=== PATIENT | female | born 1930 | race Caucasian/White ===

== ENCOUNTER 2017-08-05 13:36 | Inpatient (IN) | payer MEDICARE ==
[~2017-08-05] VITALS: Ht 160 cm; Wt 64.6 kg
[~2017-08-05 13:36] MED LIST: ADAL60TA9 PO; ASPI81 PO; CEPH500C3 PO; LISI-360 PO; NOVONP2 SQ; OMEP20TA PO; SYNT137T PO; TAB-TAB PO
[2017-08-05 13:43] VITALS: BP 157/70; PULSE 69; RESP 17; TEMP 98.8; O2SAT 97
[2017-08-05] MEDS ORDERED: LEVO112T2 PO (13:55)
[2017-08-05] MEDS ORDERED: NIFE60TA58 PO (13:55)
[2017-08-05] MEDS ORDERED: LOSA50TA PO (13:55)
[2017-08-05] MEDS ORDERED: SODIUM CHLORID 0.9% 500 ML INJ 500 ML IV ONE (14:45)
[2017-08-05] MEDS ORDERED: ONDANSETRON HCL 4 MG/2 ML VIAL IV PUSH ONE (14:45)
[2017-08-05] MEDS ORDERED: SODIUM CHLORIDE 0.9% FLUSH 10 ML FLUSH IVF PRN (14:45)
[2017-08-05 15:07] LABS: AUTOMATED NEUTROPHIL # 7.4 TH/MM3 (1.8-7.7); BASOPHIL # 0.1 TH/MM3 (0-0.2); BASOPHIL % 0.6 % (0.0-2.0); EOSINOPHIL # 0.1 TH/MM3 (0-0.4); EOSINOPHIL % 0.9 % (0.0-4.0); HEMOGLOBIN 11.2 GM/DL (11.6-15.3); LYMPH % 17.5 % (9.0-44.0); LYMPHOCYTE # 1.8 TH/MM3 (1.0-4.8); MEAN CELL VOLUME 90.8 FL (80.0-100.0); MEAN CORPUSCULAR HEMOGLOBIN 31.8 PG (27.0-34.0); MONO % 7.6 % (0.0-8.0); MONOCYTE # 0.8 TH/MM3 (0-0.9); NEUT % 73.4 % (16.0-70.0); PLATELET COUNT 337 TH/MM3 (150-450); RED BLOOD COUNT 3.53 MIL/MM3 (4.00-5.30); RED CELL DISTRIBUTION WIDTH 13.4 % (11.6-17.2); WHITE BLOOD COUNT 10.1 TH/MM3 (4.0-11.0)
[2017-08-05 15:15] VITALS: O2SAT 98
[2017-08-05 15:32] LABS: ALBUMIN 2.9 GM/DL (3.4-5.0); ALT (GPT) 15 U/L (10-53); AST (GOT) 15 U/L (15-37); BICARBONATE 26.9 MEQ/L (21.0-32.0); BLOOD UREA NITROGEN 29 MG/DL (7-18); CALCIUM 8.6 MG/DL (8.5-10.1); CHLORIDE 104 MEQ/L (98-107); CREATININE 1.23 MG/DL (0.50-1.00); GLOMERULAR FILTRATION RATE 41 ML/MIN (>89); GLUCOSE,RANDOM 224 MG/DL (74-106); SODIUM (NA) 137 MEQ/L (136-145)
[2017-08-05 15:35] LABS: ACETAMINOPHEN LESS THAN 2.0 MCG/ML (10.0-30.0); ALKALINE PHOSPHATASE 80 U/L (45-117); TOTAL BILIRUBIN ADULT 0.3 MG/DL (0.2-1.0); TOTAL PROTEIN 6.5 GM/DL (6.4-8.2)
[2017-08-05 15:36] LABS: BACTERIA, URINE OCC /hpf; BILIRUBIN, URINE NEG (NEG); BLOOD, URINE NEG (NEG); GLUCOSE,URINE NEG (NEG); KETONE, URINE NEG (NEG); NITRITE,URINE NEG (NEG); SQUAMOUS EPITHELIAL CELL URINE 1 /hpf (0-5); URINE COLOR LIGHT-YELLOW (YELLW/STRAW); URINE LEUKOCYTE ESTERASE SMALL (NEG)
--- NOTE | 2017-08-05 16:20 | PD ---
HPI Chief Complaint: Psychiatric Symptoms Time Seen by Provider: 14:15 Travel History International Travel<30 days: No Contact w/Intl Traveler<30days: No Traveled to known affect area: No History of Present Illness HPI 87-year-old female is brought into the emergency department under the Pereira act. Patient lives in [facility] with a caregiver. Her only medication is Synthroid for hypothyroidism. Patient states she is suicidal, and attempted to overdose on her Synthroid medication. He reportedly took 70 of her 0.112 g level of thyroid tablets today. Her may have gone out for some shopping when she returned home the patient told her this and she was Pereira acted. Patient has no complaints of pain, or other problems. She just feels tired and doesn't want be here anymore. She reports that her a year ago in May. They had been for 68 years. She feels she has known around her socially and feels alone. She is allergic to codeine, meperidine, and metformin. PFSH Past Medical History Anemia: Yes Anxiety: Yes Cancer: No Cardiovascular Problems: Yes (MO; CHF ; PACEMAKER) High Cholesterol: Yes Chest Pain: Yes Congestive Heart Failure: Yes COPD: Yes Diabetes: Yes (TYPE II) Patient Takes Glucophage: No Diminished Hearing: No Endocrine: Yes Gastrointestinal Disorders: No Hepatitis: No Hiatal Hernia: No Hypertension: Yes Medical other: Yes (HX ANEMIA, REFLUX, PSORIASIS) Musculoskeletal: No Neurologic: No Respiratory: Yes (SLEEP APNEA) Renal Failure: Yes (RENAL INSUFFICIENCY UPON ADMISSION) Thyroid Disease: Yes (HYPOTHYROIDISM) ?: Not Menopausal: Yes Past Surgical History Abdominal Surgery: Yes (APPY AND CHOLECYSTECTOMY) Appendectomy: Yes (mar 04, 2008) Cardiac Surgery: Yes (INSERTION PACEMAKER 12/23. CABGX4 2007) Cholecystectomy: Yes Coronary Artery Bypass Graft: Yes (2007) Gynecologic Surgery: Yes (OVARIAN CYSTECTOMY) Oral Surgery: Yes (IMPACTED WISDOM TOOTH--JANUARY 2008) Pacemaker: Yes Other Surgery: Yes Social History Alcohol Use: No Tobacco Use: No (QUIT 10 YRS AGO) Substance Use: No Allergies-Medications (Allergen,Severity, Reaction): Coded Allergies: metformin (Unverified Allergy, Severe, Diarrhea, 08/05/17) meperidine (Unverified Adverse Reaction, Severe, Hallucinations, 08/05/17) codeine (Unverified Adverse Reaction, Intermediate, Hallucinations, ) Reported Meds & Prescriptions Reported Meds & Active Scripts Active Reported Losartan (Losartan Potassium) 50 Mg Tab 50 Mg PO DAILY Nifedipine ER 24 HR (Nifedipine) 60 Mg Tab 60 Mg PO DAILY Levothyroxine (Levothyroxine Sodium) 112 Mcg Tab 112 Mcg PO DAILY Review of Systems Except as stated in HPI: all other systems reviewed are Neg General / Constitutional: No: Fever Eyes: No: Visual changes HENT: No: Headaches Cardiovascular: No: Chest Pain or Discomfort Respiratory: No: Shortness of Breath Gastrointestinal: No: Abdominal Pain Genitourinary: No: Dysuria Musculoskeletal: No: Pain Skin: No Rash Neurologic: No: Weakness Psychiatric: Positive: Depression, Suicidal Ideations Endocrine: No: Polydipsia Hematologic/Lymphatic: No: Easy Bruising Physical Exam Narrative GENERAL: Patient appears in no acute distress. SKIN: Warm and dry. Normal color. Normal turgor. HEAD: Atraumatic. Normocephalic. EYES: Pupils equal and round. No scleral icterus. No injection or drainage. ENT: No nasal bleeding or discharge. Mucous membranes pink and moist. NECK: Trachea midline. No JVD. CARDIOVASCULAR: Regular rate and rhythm. RESPIRATORY: No accessory muscle use. Clear to auscultation. Breath sounds equal bilaterally. GASTROINTESTINAL: Abdomen soft, non-tender, nondistended. Hepatic and splenic margins not palpable. MUSCULOSKELETAL: Extremities without clubbing, cyanosis, or edema. No obvious deformities. NEUROLOGICAL: Awake and alert. No obvious cranial nerve deficits. Motor grossly within normal limits. Five out of 5 muscle strength in the arms and legs. Normal speech. PSYCHIATRIC: Appropriate mood and affect; insight and judgment normal. Data Data Last Documented VS Vital Signs Date Time Temp Pulse Resp B/P (MAP) Pulse Ox O2 Delivery O2 Flow Rate FiO2 08/05/17 15:15 98 08/05/17 13:43 98.8 69 17 157/70 (99) Orders Orders Electrocardiogram (08/05/17 14:39) Complete Blood Count With Diff (08/05/17 14:39) Comprehensive Metabolic Panel (08/05/17 14:39) Prothrombin Time / Inr (Pt) (08/05/17 14:39) Act Partial Throm Time (Ptt) (08/05/17 14:39) Urinalysis - C+S If Indicated (08/05/17 14:39) Iv Access Insert/Monitor (08/05/17 14:39) Ecg Monitoring (08/05/17 14:39) Oximetry (08/05/17 14:39) Psych Screen (08/05/17 14:39) Ondansetron Inj (Zofran Inj) (08/05/17 14:45) Sodium Chloride 0.9% Flush (Ns Flush) (08/05/17 14:45) Drug Screen, Random Urine (08/05/17 14:39) Alcohol (Ethanol) (08/05/17 14:39) Salicylates (Aspirin) (08/05/17 14:39) Tylenol (Acetaminophen) (08/05/17 14:39) Sodium Chlorid 0.9% 500 Ml Inj (Ns 500 M (08/05/17 14:45) Diet Regular Basic (08/05/17 Dinner) Labs Laboratory Tests Test 08/05/17 14:40 08/05/17 14:53 White Blood Count 10.1 TH/MM3 Red Blood Count 3.53 MIL/MM3 Hemoglobin 11.2 GM/DL Hematocrit 32.0 % Mean Corpuscular Volume 90.8 FL Mean Corpuscular Hemoglobin 31.8 PG Mean Corpuscular Hemoglobin Concent 35.0 % Red Cell Distribution Width 13.4 % Platelet Count 337 TH/MM3 Mean Platelet Volume 8.0 FL Neutrophils (%) (Auto) 73.4 % Lymphocytes (%) (Auto) 17.5 % Monocytes (%) (Auto) 7.6 % Eosinophils (%) (Auto) 0.9 % Basophils (%) (Auto) 0.6 % Neutrophils # (Auto) 7.4 TH/MM3 Lymphocytes # (Auto) 1.8 TH/MM3 Monocytes # (Auto) 0.8 TH/MM3 Eosinophils # (Auto) 0.1 TH/MM3 Basophils # (Auto) 0.1 TH/MM3 CBC Comment DIFF FINAL Differential Comment Prothrombin Time 10.0 SEC Prothromb Time International Ratio 1.0 RATIO Activated Partial Thromboplast Time 25.0 SEC Blood Urea Nitrogen 29 MG/DL Creatinine 1.23 MG/DL Random Glucose 224 MG/DL Total Protein 6.5 GM/DL Albumin 2.9 GM/DL Calcium Level 8.6 MG/DL Alkaline Phosphatase 80 U/L Aspartate Amino Transf (AST/SGOT) 15 U/L Alanine Aminotransferase (ALT/SGPT) 15 U/L Total Bilirubin 0.3 MG/DL Sodium Level 137 MEQ/L Potassium Level 3.6 MEQ/L Chloride Level 104 MEQ/L Carbon Dioxide Level 26.9 MEQ/L Anion Gap 6 MEQ/L Estimat Glomerular Filtration Rate 41 ML/MIN Salicylates Level LESS THAN 1.7 MG/DL Acetaminophen Level LESS THAN 2.0 MCG/ML Ethyl Alcohol Level LESS THAN 3 MG/DL Urine Color LIGHT-YELLOW Urine Turbidity CLEAR Urine pH 5.0 Urine Specific [place] 1.006 Urine Protein NEG mg/dL Urine Glucose (UA) NEG mg/dL Urine Ketones NEG mg/dL Urine Occult Blood NEG Urine Nitrite NEG Urine Bilirubin NEG Urine Urobilinogen LESS THAN 2.0 MG/DL Urine Leukocyte Esterase SMALL Urine RBC LESS THAN 1 /hpf Urine WBC 3 /hpf Urine Squamous Epithelial Cells 1 /hpf Urine Bacteria OCC /hpf Microscopic Urinalysis Comment CULT NOT INDICATED Urine Opiates Screen NEG Urine Barbiturates Screen NEG Urine Amphetamines Screen NEG Urine Benzodiazepines Screen NEG Urine Cocaine Screen NEG Urine Cannabinoids Screen NEG MDM Medical Decision Making Medical Screen Exam Complete: Yes Emergency Medical Condition: Yes Differential Diagnosis Pereira act. Reported Synthroid overdose. Suicidal ideation. Narrative Course Patient appears medically stable at time of exam. Poison control was all by nursing staff and supportive care is the only treatment. Labs ordered per psychiatric protocol. EKG is performed showing sinus rhythm with first-degree AV block. This is reviewed with Dr. French. Patient is monitored here in the department for 6 hours. She is medically clear for psychiatric evaluation. Patient was seen and evaluated by Dr. Clay who will admit the patient to the medical psychiatric unit. Diagnosis Primary Impression: Overdose Qualified Codes: T50.902A - Poisoning by unspecified drugs, medicaments and biological substances, intentional self-harm, initial encounter Admitting Information Admitting Physician Requests: Admit Condition: Stable Amilcar Hernandez Aug 05, 2017 16:20
[2017-08-05] MEDS ORDERED: MAGNESIUM HYDROXIDE SUSP 30 ML CUP PO PRN (17:45)
[2017-08-05] MEDS ORDERED: ALUMINUM/MAGNESIUM/SIMETH 30 ML CUP PO PRN (17:45)
[2017-08-05] MEDS ORDERED: ACETAMINOPHEN 325 MG TAB PO PRN (17:45)
[2017-08-05] MEDS ORDERED: LORazepam 2 MG/ML VIAL IM PRN (17:45)
[2017-08-05] MEDS ORDERED: LORazepam 0.5 MG TAB PO PRN (17:45)
--- NOTE | 2017-08-05 17:46 | HHI.HP ---
Provisional Diagnosis Admission Date [place] I. Major depression Certification of Person's Competence To Provide Express and Informed Consent I have personally examined Erasto Galeas , a person being served at [facility] on, Aug 05, 2017 17:37. Express and informed consent means consent voluntarily given in writing, by a competent person, after sufficient explanation and disclosure of the subject matter involved to enable the person to make a knowing and willful decision without any element of force, fraud, deceit, duress, or other form of constraint or coercion. This person is 18 years of age or older, is not now known to be incompetent to consent to treatment with a guardian advocate, and does not have a health care surrogate or proxy currently making medical treatment decisions. I have found this person to be one of the following: [X] Competent to provide express and informed consent, as defined above, for voluntary admission to this facility and is competent to provide express and informed consent for treatment. He/she has the consistent capacity to make well reasoned, willful, and knowing decisions concerning his or her medical or mental health treatment. The person fully and consistently understands the purpose of the admission for examination/placement and is fully capable of personally exercising all rights assured [place] Incompetent to provide express and informed consent to voluntary admission, and this is incompetent to provide express and informed consent to treatment. The person must be transferred to involuntary status and a petition for a guardian advocate filed with the Circuit Court. [] Refusing to provide express and informed consent to voluntary admission but is competent to provide express and informed consent for treatment. The person must be discharged or transferred to involuntary status. Form shall be completed within 24 hours of a person's arrival at the receiving facility and filed in the clinical record of each person: 1. Admitted on a voluntary basis 2. Permitted to provide express and informed consent to his/her own treatment 3. Allowed to transfer from involuntary to voluntary status 4. Prior to permitting a person to consent to his or her own treatment after having been previously found incompetent to consent to treatment. History of Present Illness Capacity: Has Capacity HPI 87-year-old female Pereira acted after intentional overdose of approximately 70 tablets of Synthroid, 112 g each. Patient did this while a caregiver was out shopping. When the caregiver returned, the patient confessed to the overdose. Patient was subsequently Pereira acted. Upon interview, the patient indeed admits to depression and making this suicide attempt. She reports that her a little more than a year ago and since then she has been increasingly depressed. She lives alone and she describes herself as very lonely. She also admits to depressed mood, anhedonia , decreased energy, feeling hopeless and helpless, diminished self-esteem, anxiety, sleep disturbance, appetite disturbance, as well as suicidality. Her daughter lives in [place] and is apparently coming down tomorrow to see the patient. However, the patient is unable to care for herself at this time and is apparently insulin-dependent diabetic. She denies the abuse of alcohol or drugs. Review of Systems Psychiatric: COMPLAINS OF: Anxiety, Depression, Suicidal Ideation Except as stated in HPI: all other systems reviewed are Neg Past Psych History Psychological trauma history was very traumatic for the patient. Violence risk - others (6 mos) Minimal Violence risk - self (6 mos) High Substance Abuse History Drugs/Alcohol past 12 months Denied Past Family Social History Coded Allergies: metformin (Unverified Allergy, Severe, Diarrhea, 08/05/17) meperidine (Unverified Adverse Reaction, Severe, Hallucinations, 08/05/17) codeine (Unverified Adverse Reaction, Intermediate, Hallucinations, ) Reported Medications Losartan (Losartan) 50 Mg Tab, 50 MG PO DAILY for Blood Pressure Management, # 30 TAB 0 Refills 08/05/17 Nifedipine ER 24 HR (Nifedipine ER 24 HR) 60 Mg Tab, 60 MG PO DAILY, #30 TAB 0 Refills 08/05/17 Levothyroxine (Levothyroxine) 112 Mcg Tab, 112 MCG PO DAILY for Thyroid, #30 TAB 0 Refills 08/05/17 Current Medications Medications (Trade) Dose Ordered Sig/Sol Route Start Time Stop Time Status Last Admin (NS Flush) 2 ml UNSCH PRN IVF 08/05/17 14:45 Family Psych History Positive for mood and anxiety disorders. Social History As stated above, patient's late 2015. Her depression started at that point. She feels lonely and lives by herself. Her daughter lives in [place] but is emotionally supportive. Patient is retired and is not under financial stress. She does have at least diabetes and hypothyroidism that concern her. Patient's Strengths (min. 2) Verbal and has access to healthcare. Physical Exam GENERAL: SKIN: Warm and dry. HEAD: Normocephalic. EYES: No scleral icterus. No injection or drainage. NECK: Supple, trachea midline. No JVD or lymphadenopathy. CARDIOVASCULAR: Regular rate and rhythm without murmurs, gallops, or rubs. RESPIRATORY: Breath sounds equal bilaterally. No accessory muscle use. GASTROINTESTINAL: Abdomen soft, non-tender, nondistended. MUSCULOSKELETAL: No cyanosis, or edema. BACK: Nontender without obvious deformity. No CVA tenderness. Vital Signs Vital Signs Date Time Temp Pulse Resp B/P (MAP) Pulse Ox O2 Delivery O2 Flow Rate FiO2 08/05/17 15:15 98 08/05/17 13:43 98.8 69 17 157/70 (99) Lab Results Test 08/05/17 14:40 08/05/17 14:53 White Blood Count 10.1 TH/MM3 Red Blood Count 3.53 MIL/MM3 Hemoglobin 11.2 GM/DL Hematocrit 32.0 % Mean Corpuscular Volume 90.8 FL Mean Corpuscular Hemoglobin 31.8 PG Mean Corpuscular Hemoglobin Concent 35.0 % Red Cell Distribution Width 13.4 % Platelet Count 337 TH/MM3 Mean Platelet Volume 8.0 FL Neutrophils (%) (Auto) 73.4 % Lymphocytes (%) (Auto) 17.5 % Monocytes (%) (Auto) 7.6 % Eosinophils (%) (Auto) 0.9 % Basophils (%) (Auto) 0.6 % Neutrophils # (Auto) 7.4 TH/MM3 Lymphocytes # (Auto) 1.8 TH/MM3 Monocytes # (Auto) 0.8 TH/MM3 Eosinophils # (Auto) 0.1 TH/MM3 Basophils # (Auto) 0.1 TH/MM3 CBC Comment DIFF FINAL Differential Comment Prothrombin Time 10.0 SEC Prothromb Time International Ratio 1.0 RATIO Activated Partial Thromboplast Time 25.0 SEC Blood Urea Nitrogen 29 MG/DL Creatinine 1.23 MG/DL Random Glucose 224 MG/DL Total Protein 6.5 GM/DL Albumin 2.9 GM/DL Calcium Level 8.6 MG/DL Alkaline Phosphatase 80 U/L Aspartate Amino Transf (AST/SGOT) 15 U/L Alanine Aminotransferase (ALT/SGPT) 15 U/L Total Bilirubin 0.3 MG/DL Sodium Level 137 MEQ/L Potassium Level 3.6 MEQ/L Chloride Level 104 MEQ/L Carbon Dioxide Level 26.9 MEQ/L Anion Gap 6 MEQ/L Estimat Glomerular Filtration Rate 41 ML/MIN Salicylates Level LESS THAN 1.7 MG/DL Acetaminophen Level LESS THAN 2.0 MCG/ML Ethyl Alcohol Level LESS THAN 3 MG/DL Urine Color LIGHT-YELLOW Urine Turbidity CLEAR Urine pH 5.0 Urine Specific [place] 1.006 Urine Protein NEG mg/dL Urine Glucose (UA) NEG mg/dL Urine Ketones NEG mg/dL Urine Occult Blood NEG Urine Nitrite NEG Urine Bilirubin NEG Urine Urobilinogen LESS THAN 2.0 MG/DL Urine Leukocyte Esterase SMALL Urine RBC LESS THAN 1 /hpf Urine WBC 3 /hpf Urine Squamous Epithelial Cells 1 /hpf Urine Bacteria OCC /hpf Microscopic Urinalysis Comment CULT NOT INDICATED Urine Opiates Screen NEG Urine Barbiturates Screen NEG Urine Amphetamines Screen NEG Urine Benzodiazepines Screen NEG Urine Cocaine Screen NEG Urine Cannabinoids Screen NEG Mental Status Examination Appearance: Appropriate Consciousness: Alert Orientation: x4 Motor Activity: Normal gait Speech: Unremarkable Language: Adequate Fund of Knowledge: Adequate Attention and Concentration: Adequate Memory: Unremarkable Mood: Sad Affect: Sad Thought Process & Associations: Intact Thought Content: Appropriate Hallucination Type: None Delusion Type: None Suicidal Ideation: Yes Suicidal Plan: Yes Suicidal Intention: Yes Homicidal Ideation: No Homicidal Plan: No Homicidal Intention: No Insight: Fair Judgment: Impulsive Assessment & Plan Problem List: (1) Severe major depression, single episode, without psychotic features ICD Codes: F32.2 - Major depressive disorder, single episode, severe without psychotic features Assessment & Plan Estimated LOS: days. 87-year-old female with multiple risk factors for suicide , including her age group, the of her , chronic physical morbidities, living alone, etc. She is status post overdose on Synthroid and this appears to be a serious suicide attempt. For these reasons she is being admitted for further evaluation and treatment. This physician has ordered a CBC and comprehensive metabolic panel to determine if any infectious process or metabolic process might be causing or contributing to the patient's depression. Additionally, we are obtaining a hemoglobin A1c and lipid panel as the patient has diabetes and may have blood sugar abnormalities as well as cholesterol problems which add to her depression. A hospitalist consult is also being obtained due to the overdose of thyroid medication, diabetes, hypertension, etc. This physician is also obtaining thyroid stimulating hormone level, vitamin B-12 level and vitamin D level as deficiencies in these areas can cause or contribute to depression. This case was discussed with the patient's physician press operator assistant, Amilcar Hernandez. Case management will also be involved to assist with information gathering and disposition planning. Tee Clay MD Aug 05, 2017 17:46
[2017-08-05 21:00] VITALS: BP 152/70; PULSE 71; RESP 18; TEMP 97.6
[2017-08-06 05:30] VITALS: BP 147/85; PULSE 70; RESP 18; TEMP 97.8; O2SAT 98
[2017-08-06] MEDS ORDERED: DEXTROSE 50% IN WATER 50 ML VIAL(D50) IV PUSH PRN (07:45)
[2017-08-06] MEDS ORDERED: GLUCAGON 1 MG/ML VIAL OTHER PRN (07:45)
[2017-08-06] MEDS: LOSARTAN 50 MG TAB PO SCH (09:07)
[2017-08-06] MEDS: NIFEdipine 60 MG SUSTAINED RELEASE TAB PO SCH (09:07)
[2017-08-06 11:16] LABS: AUTOMATED NEUTROPHIL # 6.4 TH/MM3 (1.8-7.7); BASOPHIL # 0.1 TH/MM3 (0-0.2); BASOPHIL % 0.6 % (0.0-2.0); EOSINOPHIL # 0.1 TH/MM3 (0-0.4); EOSINOPHIL % 0.9 % (0.0-4.0); HEMATOCRIT 32.4 % (35.0-46.0); HEMOGLOBIN 11.2 GM/DL (11.6-15.3); LYMPH % 15.3 % (9.0-44.0); LYMPHOCYTE # 1.3 TH/MM3 (1.0-4.8); MEAN CELL VOLUME 92.6 FL (80.0-100.0); MEAN CORPUSCULAR HGB CONC 34.6 % (32.0-36.0); MEAN PLATELET VOLUME 8.7 FL (7.0-11.0); MONO % 9.3 % (0.0-8.0); MONOCYTE # 0.8 TH/MM3 (0-0.9); NEUT % 73.9 % (16.0-70.0); PLATELET COUNT 338 TH/MM3 (150-450); RED CELL DISTRIBUTION WIDTH 13.3 % (11.6-17.2); WHITE BLOOD COUNT 8.7 TH/MM3 (4.0-11.0)
[2017-08-06] MEDS: INSULIN ASPART SUPPLEMENTAL SCALE SQ SCH ×4 (11:40→20:42)
[2017-08-06 11:47] LABS: ALBUMIN 2.8 GM/DL (3.4-5.0); AST (GOT) 18 U/L (15-37); BICARBONATE 27.5 MEQ/L (21.0-32.0); BLOOD UREA NITROGEN 25 MG/DL (7-18); CALCIUM 8.7 MG/DL (8.5-10.1); CHLORIDE 107 MEQ/L (98-107); CHOLESTEROL 169 MG/DL (120-200); CREATININE 1.25 MG/DL (0.50-1.00); GLOMERULAR FILTRATION RATE 41 ML/MIN (>89); GLUCOSE,RANDOM 180 MG/DL (74-106); SODIUM (NA) 141 MEQ/L (136-145); TRIGLYCERIDES 88 MG/DL (42-150)
[2017-08-06 12:15] LABS: ALKALINE PHOSPHATASE 76 U/L (45-117); ALT (GPT) 16 U/L (10-53); CHOLESTEROL/ HDL RATIO 3.06 RATIO; HDL CHOLESTEROL 55.1 MG/DL (40.0-60.0); LDL CHOLESTEROL 96 MG/DL (0-99); TOTAL BILIRUBIN ADULT 0.3 MG/DL (0.2-1.0); TOTAL PROTEIN 6.4 GM/DL (6.4-8.2)
[2017-08-06] MEDS ORDERED: ACETAMINOPHEN 325 MG TAB PO PRN (12:45)
[2017-08-06] MEDS ORDERED: MAGNESIUM HYDROXIDE SUSP 30 ML CUP PO PRN (12:45)
[2017-08-06] MEDS ORDERED: ALUMINUM/MAGNESIUM/SIMETH 30 ML CUP PO PRN (12:45)
--- NOTE | 2017-08-06 12:47 | HHI.PYPN ---
Subjective Remarks This patient initially seen by Dr. Tee Clay who dictated initial psychiatric H&P. I have finished the initial psychiatric admission order template, reviewed the med reconciliation. Patient was seen in her room with nurse Fabrice, Counselor Danita, and patient's daughter Flavia who just came in from [place]. I spent about 30 minutes speaking with the daughter related to diagnosis the admission procedure are diagnostic impressions, treatment recommendations. Including neurology consultation. Patient's daughter did have multiple questions that I answered to the best I could. Daughter decided to allow us to continue treating her mother. They may have made arrangements for an independent living situation at [facility]. It appears the daughter will be staying in town for least a few weeks to assist and also have the patient's caregiver staying there with with the patient. At this time the patient continues depressed she acknowledges sad mood, crying spells, initial and mid insomnia, with a.m. anergy. He says is a marked decrease in appetite with significant weight loss. There is marked anhedonia. Along with the helplessness and hopelessness, there is decreased concentration and attention, increased irritability with decreased coping. She denies voices or visions. Denies alcohol or drug use. Denies any prior psychiatric hospitalization her psychotropic medications. Though it appears her primary care doctor placed her on Lexapro 10 mg daily about 6 weeks ago. At this time patient continues to meet criteria for inpatient psychiatric assessment evaluation and treatment. Oropharyngeal she does have capacity to sign for the admission for her medications. Thus I'll lift the Pereira act allow the patient to sign in on a voluntary basis Review of Systems Except as stated in HPI: all other systems reviewed are Neg Mental Status Examination Appearance: Appropriate Consciousness: Alert Orientation: x4 Motor Activity: Normal gait Speech: Unremarkable Language: Adequate Fund of Knowledge: Adequate Attention and Concentration: Adequate Memory: Unremarkable Mood: Sad Affect: Sad Thought Process & Associations: Intact Thought Content: Appropriate Hallucination Type: None Delusion Type: None Suicidal Ideation: Yes Suicidal Plan: Yes Suicidal Intention: Yes Homicidal Ideation: No Homicidal Plan: No Homicidal Intention: No Insight: Fair Judgment: Impulsive Results Labs Test 08/05/17 14:40 08/05/17 14:53 08/06/17 09:30 White Blood Count 10.1 TH/MM3 8.7 TH/MM3 Red Blood Count 3.53 MIL/MM3 3.50 MIL/MM3 Hemoglobin 11.2 GM/DL 11.2 GM/DL Hematocrit 32.0 % 32.4 % Mean Corpuscular Volume 90.8 FL 92.6 FL Mean Corpuscular Hemoglobin 31.8 PG 32.0 PG Mean Corpuscular Hemoglobin Concent 35.0 % 34.6 % Red Cell Distribution Width 13.4 % 13.3 % Platelet Count 337 TH/MM3 338 TH/MM3 Mean Platelet Volume 8.0 FL 8.7 FL Neutrophils (%) (Auto) 73.4 % 73.9 % Lymphocytes (%) (Auto) 17.5 % 15.3 % Monocytes (%) (Auto) 7.6 % 9.3 % Eosinophils (%) (Auto) 0.9 % 0.9 % Basophils (%) (Auto) 0.6 % 0.6 % Neutrophils # (Auto) 7.4 TH/MM3 6.4 TH/MM3 Lymphocytes # (Auto) 1.8 TH/MM3 1.3 TH/MM3 Monocytes # (Auto) 0.8 TH/MM3 0.8 TH/MM3 Eosinophils # (Auto) 0.1 TH/MM3 0.1 TH/MM3 Basophils # (Auto) 0.1 TH/MM3 0.1 TH/MM3 CBC Comment DIFF FINAL DIFF FINAL Differential Comment Prothrombin Time 10.0 SEC Prothromb Time International Ratio 1.0 RATIO Activated Partial Thromboplast Time 25.0 SEC Blood Urea Nitrogen 29 MG/DL 25 MG/DL Creatinine 1.23 MG/DL 1.25 MG/DL Random Glucose 224 MG/DL 180 MG/DL Total Protein 6.5 GM/DL 6.4 GM/DL Albumin 2.9 GM/DL 2.8 GM/DL Calcium Level 8.6 MG/DL 8.7 MG/DL Alkaline Phosphatase 80 U/L 76 U/L Aspartate Amino Transf (AST/SGOT) 15 U/L 18 U/L Alanine Aminotransferase (ALT/SGPT) 15 U/L 16 U/L Total Bilirubin 0.3 MG/DL 0.3 MG/DL Sodium Level 137 MEQ/L 141 MEQ/L Potassium Level 3.6 MEQ/L 4.2 MEQ/L Chloride Level 104 MEQ/L 107 MEQ/L Carbon Dioxide Level 26.9 MEQ/L 27.5 MEQ/L Anion Gap 6 MEQ/L 7 MEQ/L Estimat Glomerular Filtration Rate 41 ML/MIN 41 ML/MIN Salicylates Level LESS THAN 1.7 MG/DL Acetaminophen Level LESS THAN 2.0 MCG/ML Ethyl Alcohol Level LESS THAN 3 MG/DL Urine Color LIGHT-YELLOW Urine Turbidity CLEAR Urine pH 5.0 Urine Specific [place] 1.006 Urine Protein NEG mg/dL Urine Glucose (UA) NEG mg/dL Urine Ketones NEG mg/dL Urine Occult Blood NEG Urine Nitrite NEG Urine Bilirubin NEG Urine Urobilinogen LESS THAN 2.0 MG/DL Urine Leukocyte Esterase SMALL Urine RBC LESS THAN 1 /hpf Urine WBC 3 /hpf Urine Squamous Epithelial Cells 1 /hpf Urine Bacteria OCC /hpf Microscopic Urinalysis Comment CULT NOT INDICATED Urine Opiates Screen NEG Urine Barbiturates Screen NEG Urine Amphetamines Screen NEG Urine Benzodiazepines Screen NEG Urine Cocaine Screen NEG Urine Cannabinoids Screen NEG Triglycerides Level 88 MG/DL Cholesterol Level 169 MG/DL LDL Cholesterol 96 MG/DL HDL Cholesterol 55.1 MG/DL Cholesterol/HDL Ratio 3.06 RATIO Vitamin B12 Level 874 PG/ML 25-Hydroxy Vitamin D Total 35.8 ng/ML Thyroid Stimulating Hormone 3rd Gen 0.037 uIU/ML Vitals/IOs Vital Signs Date Time Temp Pulse Resp B/P (MAP) Pulse Ox O2 Delivery O2 Flow Rate FiO2 08/06/17 05:30 97.8 70 18 147/85 (105) 98 Intake and Output 08/06/17 08/06/17 08/07/17 08:00 16:00 00:00 Intake Total 240 ml Balance 240 ml Assessment & Plan Problem List: (1) Severe major depression, single episode, without psychotic features ICD Codes: F32.2 - Major depressive disorder, single episode, severe without psychotic features Assessment & Plan Estimated LOS: days at this time patient meets criteria for involuntary psychiatric hospitalization. Will of neurology consult will this, and will hospice consult will thus all through [facility]. We will increase her Lexapro to 20 mg daily. We'll continue to work with family about placement issues perhaps it patient's gland by this weekend Justification for Cont. Inpt. At this time patient will decompensate placed in the lower level of care Discharge Planning Probable transient to patient's Abiodun by the weekend Request HC Surrog/Guard Advoc?: No Darryl Garcia MD Aug 06, 2017 12:47
[2017-08-06] MEDS: ESCITALOPRAM OXALATE 20 MG TAB PO SCH (14:30)
--- NOTE | 2017-08-06 16:07 | PD.CONS ---
History of Present Illness Service Neurology Consult Requested By psych Reason for Consult memory loss Primary Care Physician Janet Blair MD History of Present Illness 87-year-old female is brought into the emergency department under the [place] act after excessive pill intake. Patient lives in [place] with a caregiver. However, she tells me she lives alone with her 2 dogs. denies any current depression, gao, dyspnea, focal weakness. no hx of stroke/tia/ sz. denies any hx of cognitive impairment. states she does not drive. hx of chronic back pain for which she uses a special brace and ambulates with a walker. b12 nml. tsh low but on replacement therapy. PFSH Past Medical History Anemia: Yes Anxiety: Yes Cancer: No Cardiovascular Problems: Yes (ND; CHF ; PACEMAKER) High Cholesterol: Yes Chest Pain: Yes Congestive Heart Failure: Yes COPD: Yes Diabetes: Yes (TYPE II) Patient Takes Glucophage: No Hypertension: Yes Medical other: Yes (HX ANEMIA, REFLUX, PSORIASIS) Renal Failure: Yes (RENAL INSUFFICIENCY UPON ADMISSION) Thyroid Disease: Yes (HYPOTHYROIDISM) Past Surgical History Abdominal Surgery: Yes (APPY AND CHOLECYSTECTOMY) Appendectomy: Yes (mar 04, 2008) Cardiac Surgery: Yes (INSERTION PACEMAKER 12/23. CABG2007) Cholecystectomy: Yes Coronary Artery Bypass Graft: Yes (2007) Gynecologic Surgery: Yes (OVARIAN CYSTECTOMY) Oral Surgery: Yes (IMPACTED WISDOM TOOTH--JANUARY 2008) Pacemaker: Yes Other Surgery: Yes Social History Alcohol Use: No Tobacco Use: No (QUIT 10 YRS AGO) Substance Use: No Allergies-Medications (Allergen,Severity, Reaction): Coded Allergies: metformin (Unverified Allergy, Severe, Diarrhea, 08/05/17) meperidine (Unverified Adverse Reaction, Severe, Hallucinations, 08/05/17) codeine (Unverified Adverse Reaction, Intermediate, Hallucinations, ) Reported Meds & Prescriptions Reported Meds & Active Scripts Active Reported Losartan (Losartan Potassium) 50 Mg Tab 50 Mg PO DAILY Nifedipine ER 24 HR (Nifedipine) 60 Mg Tab 60 Mg PO DAILY Levothyroxine (Levothyroxine Sodium) 112 Mcg Tab 112 Mcg PO DAILY Review of Systems Except as stated in HPI: all other systems reviewed are Neg Review of Systems All other ROS: ROS reviewed as documented in chart Past Family Social History Allergies: Coded Allergies: metformin (Unverified Allergy, Severe, Diarrhea, 08/05/17) meperidine (Unverified Adverse Reaction, Severe, Hallucinations, 08/05/17) codeine (Unverified Adverse Reaction, Intermediate, Hallucinations, ) Active Ordered Medications Current Medications Medications (Trade) Dose Ordered Sig/Sol Route Start Time Stop Time Status Last Admin (NS Flush) 2 ml UNSCH PRN IVF 08/05/17 14:45 (Ativan) 0.5 mg Q12H PRN PO 08/05/17 17:45 (Ativan Inj) 0.5 mg Q12H PRN IM 08/05/17 17:45 (Tylenol) 650 mg Q4H PRN PO 08/05/17 17:45 (Milk Of Magnesia Liq) 30 ml DAILY PRN PO 08/05/17 17:45 (Mag-Al Plus Susp Liq) 30 ml Q6H PRN PO 08/05/17 17:45 (Cozaar) 50 mg DAILY PO 08/06/17 09:00 08/06/17 09:07 (Procardia Xl) 60 mg DAILY PO 08/06/17 09:00 08/06/17 09:07 (Pneumovax-23 Inj) 25 mcg ONCE ONCE IM 08/07/17 10:00 08/07/17 10:01 (D50w (Vial) Inj) 50 ml UNSCH PRN IV PUSH 08/06/17 07:45 (Glucagon Inj) 1 mg UNSCH PRN OTHER 08/06/17 07:45 (NovoLOG SUPPLEMENTAL SCALE) 1 ACHS SLIDING SCALE SQ 08/06/17 09:00 08/06/17 12:00 (Synthroid) 112 mcg DAILY@0600 PO 08/07/17 06:00 (Lexapro) 20 mg DAILY PO 08/06/17 12:45 08/06/17 14:30 Exam I&O / VS 08/06/17 08/06/17 08/07/17 15:00 23:00 07:00 Intake Total 480 ml Balance 480 ml Intake Oral 480 ml Vital Signs Date Time Temp Pulse Resp B/P (MAP) Pulse Ox O2 Delivery O2 Flow Rate FiO2 08/06/17 05:30 97.8 70 18 147/85 (105) 98 08/05/17 21:00 97.6 71 18 152/70 (97) General: Alert and Oriented, No acute distress Eye: EOMI Respiratory: Non-labored respirations Musculoskeletal: ROM Neurologic: Alert, Oriented, Normal sensory, Normal motor, No focal defects, CN II-XII intact, Normal DTR's Psychiatric: Cooperative, Appropriate mood & affect Exam Comments pleasant 87 y/o sitting up in chair. ox 1-2. not to exact date/year. is it 2024 ? knew she was in a hospital. was interactive and smiling appropriately. pres: ? , able to name simple objects. short term memory loss. eomi, ou 2mm sluggish, face sym, nava to gravity Review/Management Diagnosis/Plan: (1) Cognitive impairment ICD Codes: R41.89 - Other symptoms and signs involving cognitive functions and awareness Status: Chronic Plan: suspect she may have underlying dementia of alz type. however, there may be a metabolic factor with recent ingestion of pills she will need serial cognitive exams to exclude a metabolic encephalopathy will check eeg and mr brain if feasible thyroid adjustment per primary team no driving outpatient f/u and will look at starting memory medications (2) Hypothyroidism ICD Codes: E03.9 - Hypothyroidism, unspecified Status: Chronic Parvez Rodney MD Aug 06, 2017 16:07
[2017-08-06 16:37] LABS: HEMOGLOBIN A1C 6.1 % (4.3-6.0)
--- NOTE | 2017-08-06 17:13 | PD.CONS ---
HPI Service [facility] Hospitalists Consult Requested By Dr. Clay Reason for Consult Synthroid overdose and diabetes Primary Care Physician Janet Blair MD Diagnoses: History of Present Illness This 87-year-old female patient with past medical history which includes anxiety /depression, hypothyroidism, hypertension, diabetes mellitus, CAD status post coronary artery bypass graft 3, cardiac pacemaker, cardiomegaly, chronic kidney disease stage III CHF, COPD, GERD and hyperlipidemia. Patient is currently in inpatient psychiatric center after ingesting 70 112mcg Synthroid tablets in an attempt to commit suicide. We've been consulted for assistance with medical management regarding overdose and diabetes. Review of Systems ROS Limitations: Poor Historian Other depression Past Family Social History Past Medical History anxiety/depression, hypothyroidism, hypertension, diabetes mellitus, CAD status post coronary artery bypass graft 3, cardiac pacemaker, cardiomegaly, chronic kidney disease stage III CHF, COPD, GERD and hyperlipidemia. Past Surgical History Appendectomy, coronary artery bypass graft Surgery, cardiac pacemaker placement, cholecystectomy, colonoscopy for polypectomy, EGD, oral surgery with tooth extraction, ovarian cystectomy Reported Medications Losartan (Losartan Potassium) 50 Mg Tab 50 Mg PO DAILY Nifedipine ER 24 HR (Nifedipine) 60 Mg Tab 60 Mg PO DAILY Levothyroxine (Levothyroxine Sodium) 112 Mcg Tab 112 Mcg PO DAILY Novolin N 15 units subcutaneous every morning Lexapro 10 mg by mouth daily Allergies: Coded Allergies: metformin (Unverified Allergy, Severe, Diarrhea, 08/05/17) meperidine (Unverified Adverse Reaction, Severe, Hallucinations, 08/05/17) codeine (Unverified Adverse Reaction, Intermediate, Hallucinations, ) Family History Noncontributory Social History Patient is currently living at home with a caregiver patient plans to move to [facility] having increasing memory loss Former tobacco use unable to provide quit date No report of current EtOH use or illicit drug use Physical Exam Vital Signs heart reg lung cta a bd s/nt ext no edema Vital Signs Date Time Temp Pulse Resp B/P (MAP) Pulse Ox O2 Delivery O2 Flow Rate FiO2 08/06/17 05:30 97.8 70 18 147/85 (105) 98 08/05/17 21:00 97.6 71 18 152/70 (97) Laboratory Laboratory Tests Test 08/06/17 09:30 White Blood Count 8.7 Red Blood Count 3.50 Hemoglobin 11.2 Hematocrit 32.4 Mean Corpuscular Volume 92.6 Mean Corpuscular Hemoglobin 32.0 Mean Corpuscular Hemoglobin Concent 34.6 Red Cell Distribution Width 13.3 Platelet Count 338 Mean Platelet Volume 8.7 Neutrophils (%) (Auto) 73.9 Lymphocytes (%) (Auto) 15.3 Monocytes (%) (Auto) 9.3 Eosinophils (%) (Auto) 0.9 Basophils (%) (Auto) 0.6 Neutrophils # (Auto) 6.4 Lymphocytes # (Auto) 1.3 Monocytes # (Auto) 0.8 Eosinophils # (Auto) 0.1 Basophils # (Auto) 0.1 CBC Comment DIFF FINAL Differential Comment Blood Urea Nitrogen 25 Creatinine 1.25 Random Glucose 180 Total Protein 6.4 Albumin 2.8 Calcium Level 8.7 Alkaline Phosphatase 76 Aspartate Amino Transf (AST/SGOT) 18 Alanine Aminotransferase (ALT/SGPT) 16 Total Bilirubin 0.3 Sodium Level 141 Potassium Level 4.2 Chloride Level 107 Carbon Dioxide Level 27.5 Anion Gap 7 Estimat Glomerular Filtration Rate 41 Triglycerides Level 88 Cholesterol Level 169 LDL Cholesterol 96 HDL Cholesterol 55.1 Cholesterol/HDL Ratio 3.06 Vitamin B12 Level 874 25-Hydroxy Vitamin D Total 35.8 Thyroid Stimulating Hormone 3rd Gen 0.037 Result Diagram: 08/06/17 0930 08/06/17 0930 Assessment and Plan Problem List: (1) Overdose ICD Codes: T50.901A - Poisoning by unspecified drugs, medicaments and biological substances, accidental (unintentional), initial encounter Status: Acute Plan: 1. depression/suicidal attempt/overdose of synthroid 2. diabetes 3. htn hold nph. monitor bg on ssi during admission her arb and ccb resumed . monitor and adjust as needed will plan to resume her synthroid at usual dose will follow (2) HTN (hypertension) ICD Codes: I10 - Essential (primary) hypertension Status: Chronic (3) Diabetes ICD Codes: E11.9 - Type 2 diabetes mellitus without complications Status: Chronic (4) Hypothyroidism ICD Codes: E03.9 - Hypothyroidism, unspecified Status: Chronic Problem Qualifiers (1) Overdose: Qualified Codes: T50.902A - Poisoning by unspecified drugs, medicaments and biological substances, intentional self-harm, initial encounter Bee Peacock Aug 06, 2017 17:13 Tee Rocha MD Aug 06, 2017 21:27
--- NOTE | 2017-08-06 17:15 | EKG ---
Date Performed: 08/06/2017 Time Performed: 09:25:14 PTAGE: 87 years EKG: Sinus rhythm WITH FIRST DEGREE AV BLOCK WITH OCCASIONAL SUPRAVENTRICULAR PREMATURE COMPLEXES ABNORMAL QRS-T ANGLE ABNORMAL ECG PREVIOUS TRACING : 08/05/2017 15.22 DOCTOR: Priti Hoffman Interpretating Date/Time 08/06/2017 17:14:18
--- NOTE | 2017-08-06 17:43 | EKG ---
Date Performed: 08/05/2017 Time Performed: 15:22:57 PTAGE: 87 years EKG: Sinus rhythm WITH FIRST DEGREE AV BLOCK SEPTAL MYOCARDIAL INFARCTION ABNORMAL ECG PREVIOUS TRACING : 09/19/2010 17.29 DOCTOR: Priti Hoffman Interpretating Date/Time 08/06/2017 17:37:01
[2017-08-06 17:58] VITALS: BP 136/64; PULSE 74; RESP 16; TEMP 98.4; O2SAT 99
[2017-08-07 05:40] VITALS: BP 136/64; PULSE 85; RESP 17; TEMP 98.2; O2SAT 98
[2017-08-07 06:00] VITALS: BP 137/58; PULSE 81; RESP 18; TEMP 98.2; O2SAT 98
[2017-08-07] MEDS: LEVOTHYROXINE SODIUM 112 MCG TAB PO SCH (06:00)
[2017-08-07] MEDS: INSULIN ASPART SUPPLEMENTAL SCALE SQ SCH ×4 (08:00→20:34)
[2017-08-07] MEDS: NIFEdipine 60 MG SUSTAINED RELEASE TAB PO SCH (08:07)
[2017-08-07] MEDS: ESCITALOPRAM OXALATE 20 MG TAB PO SCH (08:07)
[2017-08-07] MEDS: LOSARTAN 50 MG TAB PO SCH (08:07)
--- NOTE | 2017-08-07 08:23 | MG ---
cc: CRISTIANA BECERRA M.D. Lab No: Date: 08/06/2017 Age: 87 Sex: F Race: REFERRING PHYSICIAN MD Rashaun An EEG was obtained on this 87-year-old patient with a history of altered mentation. FINDINGS The EEG is showing prominent artifactual rhythms. There are some 8-10 per second alpha rhythms posteriorly. The muscle artifact is a substantial limitation on the overall quality of the EEG. At times there is some slowing associated with drowsiness. Photic stimulation showed some possible bilateral driving response. Hyperventilation was not performed. INTERPRETATION Limited EEG study because of the excessive artifact but not showing any obvious abnormality. Cristiana Becerra MD OFC/SSB /7:58 AM /8:13 AM
[2017-08-07] MEDS ORDERED: PNEUMOCOCCAL POLYVALENT INJ 25 MCG/0.5 ML SYR IM ONE (10:00)
--- NOTE | 2017-08-07 12:14 | RADRPT ---
EXAM DATE/TIME: 08/07/2017 11:45 [facility] COMPARISON: No previous studies available for comparison. INDICATIONS : Altered mental status RADIATION DOSE: 56.35 CTDIvol (mGy) MEDICAL HISTORY : Cardiovascular disease. Chronic obstructive pulmonary disease. Hypertension.Stage 3 renal disease, Di abetes type 2, Anemia SURGICAL HISTORY : Pacemaker. ENCOUNTER: Initial ACUITY: 1 day PAIN SCALE: 2/10 LOCATION: Bilateral cranial TECHNIQUE: Multiple contiguous axial images were obtained of the head. Using automated exposure control and adj ustment of the mA and/or kV according to patient size, radiation dose was kept as low as reasonably a chievable to obtain optimal diagnostic quality images. DICOM format image data is available electro nically for review and comparison. FINDINGS: CEREBRUM: The ventricles are normal for age. There is diffuse bilateral cortical atrophy. There is an old small infarct in the left thalamus. There is bilateral chronic white matter changes. No evidence of midlin e shift, mass lesion, hemorrhage or acute infarction. No extra-axial fluid collections are seen. POSTERIOR FOSSA: The cerebellum and brainstem are intact. A few small old infarcts are seen in both cerebellar hemisph eres. The 4th ventricle is midline. The cerebellopontine angle is unremarkable. EXTRACRANIAL: The visualized portion of the orbits is intact. SKULL: The calvaria is intact. No evidence of skull fracture. CONCLUSION: 1. No focal or acute intracranial hemorrhage. 2. 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 3. A few small old infarcts are seen in both cerebellar hemispheres. 4. Chronic bilateral white matter changes. Doug Vasquez MD on August 07, 2017 at 12:06 Board Certified Radiologist. This report was verified electronically.
--- NOTE | 2017-08-07 14:41 | PD.TTN ---
Patient Problems 1. Discharge planning 2. Medication compliance 3. Knowledge deficit 4. Lack of coping skills Progress Toward Goals Provider Present: Dr. Radu Garcia Provider Input: 08/07 patient is pleasant but very depressed and in need for med adjustment Psychiatric Counselors Present: Elena Aggarwal LCSW Psych Therapist Input: 08/07 daughter is very invovled and is intending for patient to move this weekend but needs to stabilize and improve with medications first - overall compliant and no behavioral issue but very depressed Group Spec/RT/OT/DUNN Present: Amilcar Whitten OT Group Spec/RT/OT/DUNN Input: 08/07 isolates to her room and needs encouragement to participate Elena Aggarwal LCSW Aug 07, 2017 14:41
--- NOTE | 2017-08-07 14:49 | HHI.PYPN ---
Subjective Remarks Patient seen in day room with nurse Dian, chart reviewed, patient compliant medication. Neurology consult reviewed and agreed with, CT of the brain reviewed. Patient sitting calmly in day room she is cooperative with fair eye contact did vaguely remember me from yesterday. Continues depressed though denying suicidality. For now continue treatment Review of Systems Except as stated in HPI: all other systems reviewed are Neg Mental Status Examination Appearance: Appropriate Consciousness: Alert Orientation: x4 Motor Activity: Normal gait Speech: Unremarkable Language: Adequate Fund of Knowledge: Adequate Attention and Concentration: Adequate Memory: Unremarkable Mood: Sad Affect: Sad Thought Process & Associations: Intact Thought Content: Appropriate Hallucination Type: None Delusion Type: None Suicidal Ideation: Yes Suicidal Plan: Yes Suicidal Intention: Yes Homicidal Ideation: No Homicidal Plan: No Homicidal Intention: No Insight: Fair Judgment: Impulsive Results Labs Test 08/06/17 17:36 Ammonia 10 MCMOL/L Vitals/IOs Vital Signs Date Time Temp Pulse Resp B/P (MAP) Pulse Ox O2 Delivery O2 Flow Rate FiO2 08/07/17 05:40 98.2 85 17 136/64 (88) 98 Intake and Output 08/07/17 08/07/17 08/08/17 08:00 16:00 00:00 Intake Total 240 ml 240 ml Balance 240 ml 240 ml Assessment & Plan Problem List: (1) Severe major depression, single episode, without psychotic features ICD Codes: F32.2 - Major depressive disorder, single episode, severe without psychotic features Assessment & Plan Estimated LOS: days patient remains depressed, fairly well oriented though at times appears a little bit confused. Neurology consult and CT scan all reviewed. For now continue treatment Justification for Cont. Inpt. At the site patient decompensated placed in a lower level of care Discharge Planning To return home with daughter possible placement this weekend Request HC Surrog/Guard Advoc?: No Darryl Garcia MD Aug 07, 2017 14:49
[2017-08-08 05:40] VITALS: BP 154/68; PULSE 80; RESP 16; TEMP 98.5; O2SAT 98
[2017-08-08] MEDS: LEVOTHYROXINE SODIUM 112 MCG TAB PO SCH (05:52)
[2017-08-08] MEDS: INSULIN ASPART SUPPLEMENTAL SCALE SQ SCH ×2 (08:00→11:05)
[2017-08-08] MEDS: ESCITALOPRAM OXALATE 20 MG TAB PO SCH (08:01)
[2017-08-08] MEDS: LOSARTAN 50 MG TAB PO SCH (08:02)
[2017-08-08] MEDS: NIFEdipine 60 MG SUSTAINED RELEASE TAB PO SCH (08:02)
[2017-08-08] MEDS ORDERED: ASPIRIN EC 81 MG TABEC PO SCH (09:00)
[2017-08-08] MEDS ORDERED: NIFE60TA58 PO (12:10)
[2017-08-08] MEDS ORDERED: ECASA81 PO (12:10)
[2017-08-08] MEDS ORDERED: LOSA50TA PO (12:10)
[2017-08-08] MEDS ORDERED: ESCI20TA PO (12:10)
[2017-08-08] MEDS ORDERED: LEVO112T2 PO (12:10)
--- NOTE | 2017-08-08 12:16 | HHI.DS ---
Psychiatry Discharge Summary Inpatient Psychiatric care?: Yes Advance Directive: No Reason Not Provided: not available Mental Health AdvanceDirective: No Health Care Proxy: No Admission Admission Date Aug 05, 2017 at 17:35 Admission Diagnosis: (1) Severe major depression, single episode, without psychotic features ICD Code: F32.2 - Major depressive disorder, single episode, severe without psychotic features Brief History 87-year-old female Randall acted after intentional overdose of approximately 70 tablets of Synthroid, 112 g each. Patient did this while a caregiver was out shopping. When the caregiver returned, the patient confessed to the overdose. Patient was subsequently Randall acted. Upon interview, the patient indeed admits to depression and making this suicide attempt. She reports that her a little more than a year ago and since then she has been increasingly depressed. She lives alone and she describes herself as very lonely. She also admits to depressed mood, anhedonia , decreased energy, feeling hopeless and helpless, diminished self-esteem, anxiety, sleep disturbance, appetite disturbance, as well as suicidality. Her daughter lives in [place] and is apparently coming down tomorrow to see the patient. However, the patient is unable to care for herself at this time and is apparently insulin-dependent diabetic. She denies the abuse of alcohol or drugs. Tobacco Use In Past 30 Days: No Tobacco Past 30 Days Alcohol Use: Never Hospital Course patient's hospital course was uneventful, she show compliance with medication in milieu from admission. She also showed cooperation with the neurological workup. Dad nurse discussions with patient's daughter concerning the treatment and recommendations and findings. Met with patient and patient's daughter today. Patient continues to denies suicidality homicidality voices or visions. Patient is still depressed though the degree of psychomotor retardation his softening, she does wish to be discharged today to her daughter. Daughter is willing to take responsibility for patient. She is scheduled to be transferred to patient's [facility] this weekend with a daughter staying for another week to help her adjust and that followed by her caregiver living with her. Patient is willing to do this. Thus patient be discharged today with Rx 1 month follow-up mental health services through [facility] Results Blood Pressure 154 / 68 Vital Signs Date Time Temp Pulse Resp B/P (MAP) Pulse Ox O2 Delivery O2 Flow Rate FiO2 08/08/17 05:40 98.5 80 16 154/68 (96) 98 Laboratory Tests Test 08/05/17 14:40 08/05/17 14:53 08/06/17 09:30 08/06/17 17:36 Red Blood Count 3.53 MIL/MM3 (4.00-5.30) 3.50 MIL/MM3 (4.00-5.30) Hemoglobin 11.2 GM/DL (11.6-15.3) 11.2 GM/DL (11.6-15.3) Hematocrit 32.0 % (35.0-46.0) 32.4 % (35.0-46.0) Neutrophils (%) (Auto) 73.4 % (16.0-70.0) 73.9 % (16.0-70.0) Blood Urea Nitrogen 29 MG/DL (7-18) 25 MG/DL (7-18) Creatinine 1.23 MG/DL (0.50-1.00) 1.25 MG/DL (0.50-1.00) Random Glucose 224 MG/DL (74-106) 180 MG/DL (74-106) Albumin 2.9 GM/DL (3.4-5.0) 2.8 GM/DL (3.4-5.0) Estimat Glomerular Filtration Rate 41 ML/MIN (>89) 41 ML/MIN (>89) Salicylates Level LESS THAN 1.7 MG/DL Acetaminophen Level LESS THAN 2.0 MCG/ML Urine Leukocyte Esterase SMALL (NEG) Urine Bacteria OCC /hpf (NONE) Monocytes (%) (Auto) 9.3 % (0.0-8.0) Hemoglobin A1c 6.1 % (4.3-6.0) Thyroid Stimulating Hormone 3rd Gen 0.037 uIU/ML (0.358-3.740) Ammonia 10 MCMOL/L (11-32) Laboratory Results Test 08/06/17 09:30 Cholesterol Level 169 MG/DL (120-200) HDL Cholesterol 55.1 MG/DL (40.0-60.0) Hemoglobin A1c 6.1 % (4.3-6.0) LDL Cholesterol 96 MG/DL (0-99) Triglycerides Level 88 MG/DL (42-150) Summary of Procedures EEG, no acute abnormalities Imaging Last Impressions Head CT 08/07/17 0000 Signed Impressions: Service Date/Time: Monday, August 07, 2017 11:45 - CONCLUSION: 1. No focal or acute intracranial hemorrhage. 2. 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 3. A few small old infarcts are seen in both cerebellar hemispheres. 4. Chronic bilateral white matter changes. Doug Vasquez MD Pending results at discharge: No Medications # of Antipsychotic meds at D/C: 0 Approp Antipsych med options 1 - Minimum of three failed multiple trials of monotherapy. 2 - Documented plan to taper to monotherapy due to previous use of multiple meds OR cross-taper in progress at D/C. 3 - Documentation of augmentation of Clozapine. 4 - Justification other than those listed in allowable values 1-3, document here : Discharge Discharge Date: Aug 08, 2017 Discharge Diagnosis: (1) Severe major depression, single episode, without psychotic features ICD Code: F32.2 - Major depressive disorder, single episode, severe without psychotic features Pt Condition on Discharge: Stable Discharge Disposition: Discharge Home Discharge Instructions Diet Instructions: As Tolerated, No Restrictions Activities you can perform: Regular-No Restrictions Scheduled Appointment: [facility] Discharge Time > 30 minutes Mental Status Examination Appearance: Appropriate Consciousness: Alert Orientation: x4 Motor Activity: Normal gait Speech: Unremarkable Language: Adequate Fund of Knowledge: Adequate Attention and Concentration: Adequate Memory: Unremarkable Mood: Sad Affect: Sad Thought Process & Associations: Intact Thought Content: Appropriate Hallucination Type: None Delusion Type: None Suicidal Ideation: Yes Suicidal Plan: Yes Suicidal Intention: Yes Homicidal Ideation: No Homicidal Plan: No Homicidal Intention: No Insight: Fair Judgment: Impulsive Discharge/Advance Care Plan Health Problems: (1) Severe major depression, single episode, without psychotic features Goals to promote your health * To prevent worsening of your condition and complications * To maintain your health at the optimal level Directions to meet your goals Take your medications as prescribed Follow your dietary instruction Follow activity as directed Keep your appointments as scheduled Take your immunizations and boosters as scheduled If your symptoms worsen call your PCP, if no PCP go to Urgent Care Center or Emergency Room For 04/02 questions related to your inpatient stay or results of tests pending at discharge, please contact Dr. Darryl Garcia at Smoking is Dangerous to Your Health. Avoid second hand smoking Darryl Garcia MD Aug 08, 2017 12:16
== END 2017-08-08 12:45 | disposition home or self-care (01) | DRG 885 ==
LOC: NEPD 13:36 → NEDA 17:35 → H250 19:44
PROVIDERS: ADMIT Psychiatry & Neurology Psychiatry; ATTEND Psychiatry & Neurology Psychiatry
DX: F32.2 Major depressive disorder, single episode, severe without psychotic features (principal); I13.0 Hypertensive heart and chronic kidney disease with heart failure and stage 1 through stage 4 chronic kidney disease, or unspecified chronic kidney disease; E11.22 Type 2 diabetes mellitus with diabetic chronic kidney disease; I50.9 Heart failure, unspecified; J44.9 Chronic obstructive pulmonary disease, unspecified; N18.3 Chronic kidney disease, stage 3 (moderate); D64.9 Anemia, unspecified; E03.9 Hypothyroidism, unspecified; T38.1X2A Poisoning by thyroid hormones and substitutes, intentional self-harm, initial encounter; M54.9 Dorsalgia, unspecified; G89.29 Other chronic pain; K21.9 Gastro-esophageal reflux disease without esophagitis; L40.9 Psoriasis, unspecified; I25.10 Atherosclerotic heart disease of native coronary artery without angina pectoris; E78.5 Hyperlipidemia, unspecified; R41.3 Other amnesia; F41.9 Anxiety disorder, unspecified; G47.30 Sleep apnea, unspecified; G47.00 Insomnia, unspecified; I44.0 Atrioventricular block, first degree; Z79.899 Other long term (current) drug therapy; Z23 Encounter for immunization; Z95.0 Presence of cardiac pacemaker; Z88.5 Allergy status to narcotic agent; Z95.1 Presence of aortocoronary bypass graft; Z87.891 Personal history of nicotine dependence
CPT/HCPCS: 70450; 80053; 80061; 80307; 81001; 82140; 82306; 82607; 82948; 83036; 84443; 85025; 85610; 85730; 90732; 93005; 95819; 96361; 96374; J1815; J2405; J7040